=== PATIENT | female | born 1970 | race Two or more races ===

== ENCOUNTER 2025-06-08 07:08 | Emergency (ER) | payer MEDICAID, OTHER ==
[~2025-06-08] VITALS: Ht 157.5 cm; Wt 114.0 kg
[2025-06-08 07:12] VITALS: BP 132/77; PULSE 100; RESP 18; TEMP 98.1; O2SAT 93
--- NOTE | 2025-06-08 07:27 | ED.PDOC ---
BEATER OUT HPI Comments 55 y/o F, presents to the ED for prolonged vaginal bleeding. Patient states, she has been having prolonged vaginal bleeding with associated abdominal cramping [id number]. Patient relays, that she no longer had her menstrual as of [id number] ago however, as of 2023 she began to bleed intermittently. Patient reports, vaginal bleeding now worsening going through x1 super tampon every hour. Patient denies fatigue, weakness, nausea, vomiting, or headache. No other symptoms or modifying factors present at this time. Chief Complaint: Vaginal Bleed Time Seen by MD: 07:30 Reviewed Notes: Nurses Notes, Medications, Allergies Allergies: Coded Allergies: NO KNOWN ALLERGIES (Unverified , 06/08/25) Information Source: Patient Mode of Arrival: Ambulatory Timing: Months Prehospital treatment: None Severity: Moderate Vaginal Discharge: None Vaginal Lesions: None Bleeding Quality: Bright Red Vaginal Mass: None Onset Of Mass/Bleeding: Menstrual Last Consensual [place]: Unknown Blood Type: Unknown Symptoms of Possible : None Associated Signs and Symptoms: Vaginal Bleeding, Cramping Past Medical History PAST MEDICAL HISTORY: Denies Surgical History: Denies all surgeries HAND SPRAY OPERATOR History: Denies all HAND SPRAY OPERATOR Hx Family History Family History: Unknown Social History Smoker: Non-Smoker Alcohol: Denies ETOH Use Drugs: Denies Drug Use Lives In: Home Constitutional: denies: chills, diaphoresis, fatigue, fever, malaise, sweats, weakness, others EENTM: denies: blurred vision, double vision, ear bleeding, ear discharge, ear drainage, ear pain, ear ringing, eye pain, eye redness, hearing loss, mouth pain, mouth swelling, nasal discharge, nose bleeding, nose congestion, nose pain, photophobia, tearing, throat pain, throat swelling, voice changes, others Respiratory: denies: cough, hemoptysis, orthopnea, SOB at rest, shortness of breath, SOB with excertion, stridor, wheezing, others Cardiovascular: denies: chest pain, dizzy spells, diaphoresis, Dyspnea on exertion, edema, irregular heart beat, left arm pain, lightheadedness, palpitations, PND, syncope, others Gastrointestinal: reports: others (abdominal cramping); denies: abdomen distended, abdominal pain, blood streaked bowels, constipated, diarrhea, dysphagia, difficulty swallowing, hematemesis, melena, nausea, poor appetite, poor fluid intake, rectal bleeding, rectal pain, vomiting Genitourinary: reports: abnormal vagina bleeding; denies: burning, dyspareunia, dysuria, flank pain, frequency, hematuria, incontinence, pain, , vagina discharge, urgency, others Neurological: denies: dizziness, fainting, headache, left sided numbness, left sided weakness, numbness, paresthesia, pre-existing deficit, right sided numbness, right sided weakness, seizure, speech problems, tingling, tremors, weakness, others Musculoskeletal: denies: back pain, gout, joint pain, joint swelling, muscle pain, muscle stiffness, neck pain, others Integumetry: denies: bruises, change in color, change in hair/nails, dryness, laceration, lesions, lumps, rash, wounds, others Allergic/Immunocompromised: denies: Difficulty Healing, Frequent Infections, Hives, Itching, others Hematologic/Lymphatic: denies: anemia, blood clots, easy bleeding, easy bruising, swollen glands, others Endocrine: denies: excessive hunger, excessive sweating, excessive thirst, excessive urination, flushing, intolerance to cold, intolerance to heat, un explained weight gain, unexplained weight loss, others Psychiatric: denies: anxiety, bipolar disorder, depression, hopeless, panic disorder, schizophrenia, sleepless, suicidal, others All Other Systems: Reviewed and Negative Physical Exam General Appearance: No Apparent Distress, Normal HEENT: Normal ENT Inspection, Pharynx Normal Neck: Full Range of Motion, Non-Tender, Normal, Normal Inspection Respiratory: Chest Non-Tender, Lungs Clear, No Accessory Muscle Use, No Respiratory Distress, Normal Breath Sounds Cardiovascular: No Edema, No Murmur, No Gallop, Normal Peripheral Pulses, Regular Rate/Rhythm Breast Exam: Deferred Gastrointestinal: No Organomegaly, Non Tender, No Pulsatile Mass, Normal Bowel Sounds, Soft Genitalia: Deferred Pelvic: Deferred Rectal: Deferred Extremities: No calf tenderness, Normal capillary refill, Normal inspection, N ormal range of motion, Non-tender, No pedal edema Musculoskeletal : Apperance: Normal Neurologic: Alert, gore seamer II-XII nml as Tested, No Motor Deficits, Normal Affect, Normal Mood, No Sensory Deficits Cerebellar Function: Normal Reflexes: Normal Skin: Dry, Normal Color, Warm Lymphatic: No Adenopathy Was a procedure done? Was a procedure done?: No Differential Diagnosis (HAND SPRAY OPERATOR) Vaginal Bleeding: Hormonal, Menometrorrhagia, PID X-Ray, Labs, Meds, VS Vital Signs Date Time Temp Pulse Resp B/P (MAP) Pulse Ox O2 Delivery O2 Flow Rate FiO2 06/08/25 07:12 98.1 100 18 132/77 93 98.1 06/08/25 07:12 100 18 93 Room Air* 0 21 Time of 1ST Reevaluation: 08:00 Reevaluation 1ST: Unchanged Patient Education/Counseling: Diagnosis, Treatment Family Education/Counseling: No Family Present Critical Care Note Critical Care Time?: No Stability Stability form required: No Heart Score Heart Score: Heart Score Response (Comments) Value History N/A 0 EKG N/A 0 Age N/A 0 Risk Factors N/A 0 Troponin N/A 0 Total 0 I personally scribed for ALYSSA FINK MD ([email or web address]) on 06/08/25 at 07:27. Electronically submitted by Joanne Bourne ([email or web address]). I personally scribed for ALYSSA FINK MD ([email or web address]) on 06/08/25 at 07:31. Electronically submitted by Joanne Bourne ([email or web address]). I personally scribed for ALYSSA FINK MD ([email or web address]) on 06/08/25 at 08:00. Electronically submitted by Joanne Bourne ([email or web address]). I personally scribed for ALYSSA FINK MD ([email or web address]) on 06/08/25 at 08:11. Electronically submitted by Joanne Bourne ([email or web address]). ALYSSA FINK MD Jun 08, 2025 07:27
[2025-06-08] MEDS ORDERED: HYDROcodone-ACET 5/325MG TAB PO ONE (08:00)
== END 2025-06-08 09:39 | disposition left against medical advice (07) ==
LOC: ER 07:08
DX: N93.9 Abnormal uterine and vaginal bleeding, unspecified (principal); R10.9 Unspecified abdominal pain